=== PATIENT | male | born 1980 | race Caucasian/White ===

== ENCOUNTER 2016-07-18 08:01 | Emergency (ER) | payer OTHER ==
[2016-07-18 08:20] VITALS: BP 109/70; PULSE 89; RESP 16; TEMP 98.6; O2SAT 95
--- NOTE | 2016-07-18 08:45 | UCPHY ---
H & P Time Seen by Provider: 07/18/16 08:33 Patient Type: Established HPI/ROS: This patient presents with a chief complaint of intermittent vertigo which has been occurring since yesterday symptoms generally do not last more than a minute and are precipitated by movement of the head but also relieved by getting up and walking. There has been no associated nausea, vomiting or fever. Before the symptoms began he did have a headache but has had none since. He denies sore throat or runny nose but has had some right ear pain associated with tinnitus. He has had similar symptoms in the past but they have always been brief. The vertigo is associated with a loss of balance and tinnitus but bilaterally. The tinnitus is more chronic. The patient is not insulin. Dependent diabetic and his blood sugar this morning was normal. He is currently not experiencing symptoms. Smoking Status: Never smoked Physical Exam: GENERAL: Well-appearing, well-nourished and in no acute distress. HEAD: Atraumatic, normocephalic. EYES: Pupils equal round and reactive to light, extraocular movements intact, sclera anicteric, conjunctiva are normal. There is no nystagmus ENT: TMs normal, nares patent, oropharynx clear without exudates. Moist mucous membranes. NECK: Normal range of motion, supple without lymphadenopathy or JVD. NEUROLOGICAL: Cranial nerves II through XII grossly intact. Normal speech, normal gait. Motor function is normal. PSYCH: Normal mood, normal affect. SKIN: Warm, dry, normal turgor, no visible rashes or lesions. Constitutional: Initial Vital Signs Temperature (C) 37 C 07/18/16 08:17 Heart Rate 89 07/18/16 08:17 Respiratory Rate 16 07/18/16 08:17 Blood Pressure 109/70 07/18/16 08:17 O2 Sat (%) 95 07/18/16 08:17 O2 Delivery Mode Room Air Allergies/Adverse Reactions: Sulfa (Sulfonamide Antibiotics) Allergy (Intermediate, Verified 07/18/16 08:22) Vomiting cats Allergy (Intermediate, Uncoded 07/18/16 08:22) Itching multiple chemicals Allergy (Unknown, Uncoded 07/18/16 08:22) multiple food Allergy (Unknown, Uncoded 07/18/16 08:22) Home Medications: Medication Instructions Recorded Insulin Aspart Novolog 70/30 01/24/16 Departure - Departure Disposition: Home, Routine, Self-Care Clinical Impression: Benign positional vertigo Qualifiers: Laterality: right Qualified Code(s): H81.11 - Benign paroxysmal vertigo, right ear Condition: Good Instructions: Benign Paroxysmal Positional Vertigo (ED) Additional Instructions: You should follow-up with the vulnerability researcher whose name is given to you in these pages. If your symptoms resolve this visit can be delayed. If symptoms worsen, if you developed vomiting and are unable to keep herself hydrated you should be seen right away. Referrals: Cory Nelson MD [Primary Care Provider] - As per Instructions Diego Rose MD [Medical Doctor] - As per Instructions - PQRS PQRS Measurement: Not applicable
== END 2016-07-18 08:49 | disposition home or self-care (01) ==
LOC: CED 08:01
DX: H81.11 Benign paroxysmal vertigo, right ear (principal); H93.11 Tinnitus, right ear
CPT/HCPCS: G0463-PO